=== PATIENT | female | born 1990 | race Caucasian/White ===

== ENCOUNTER 2020-12-04 18:58 | Emergency (ER) | payer OTHER ==
[~2020-12-04] VITALS: Ht 167.6 cm; Wt 83.7 kg
[2020-12-04 20:58] VITALS: BP 130/77
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
[2020-12-04 21:47] LABS: BARBITURATES NEG (NEG); BENZODIAZEPINES NEG (NEG); CANNABINOIDS NEG (NEG); COCAINE NEG (NEG); METHADONE NEG (NEG); OPIATES NEG (NEG); PHENCYCLIDINE NEG (NEG)
[2020-12-04 21:49] LABS: AMPHETAMINE/METHAMPHETAMINE NEG (NEG)
[2020-12-04 21:57] LABS: BACTERIA,URINE FEW /HPF (0-FEW); BILIRUBIN,URINE NEG (NEG); CLARITY,URINE CLEAR; COLOR,URINE YELLOW; GLUCOSE,URINE NEG (NEG); NITRITE,URINE NEG (NEG); SQUAMOUS EPITHELIAL CELL,UR MOD /LPF; UROBILINOGEN,URINE 0.2 mg/dL (0.2 mg/dL); WBC,URINE OCC /HPF (0-4)
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
[2020-12-04] MEDS ORDERED: ACETAMINOPHEN 500 MG TABLET PO ONE (22:30)
== END 2020-12-04 22:25 ==
LOC: ER 18:58
DX: S70.01XA Contusion of right hip, initial encounter (principal); V43.62XA Car passenger injured in collision with other type car in traffic accident, initial encounter; Y93.89 Activity, other specified; Y92.89 Other specified places as the place of occurrence of the external cause; Y99.8 Other external cause status
CPT/HCPCS: 36415; 70450; 80307; 81001; 81025; 99284-25

== ENCOUNTER → 2020-12-04 | Outpatient (CLI) | payer SELFPAY | LOC: LAB 17:41 | DX: Z02.83 Encounter for blood-alcohol and blood-drug test (principal) | CPT/HCPCS: 36415 ==

== ENCOUNTER → 2020-12-11 | Emergency (ER) | payer SELFPAY ==
[~2020-12-11] VITALS: Ht 167.6 cm; Wt 83.7 kg
[~2020-12-11] MED LIST: ONDANSETRON ODT 4 MG TAB.RAPDIS PO ONE
[2020-12-11 18:10] VITALS: BP 138/75
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
== END ==
LOC: ER 17:47
DX: R51.9 Headache, unspecified (principal); R42 Dizziness and giddiness; R11.0 Nausea
CPT/HCPCS: 99283; Q0162